=== PATIENT | female | born 1955 | race Caucasian/White ===

== ENCOUNTER 2016-11-14 19:47 | Emergency (ER) | payer BC ==
[2016-11-14] MEDS ORDERED: CORTEF20 MG PO (19:54)
[2016-11-14] MEDS ORDERED: CORTEF 20MG TAB20 MG PO (19:55)
[2016-11-14] MEDS ORDERED: AMBIEN12.5 MG PO (19:55)
[2016-11-14] MEDS ORDERED: PEPCID40 M1 PO (19:56)
[2016-11-14] MEDS ORDERED: ONE DAILY WOME1 EACH PO (19:56)
[2016-11-14] MEDS ORDERED: DURAGESIC1 EAC2 TD (19:56)
[2016-11-14] MEDS ORDERED: MYRBETRIQ50 MG PO (19:58)
[2016-11-14] MEDS ORDERED: LEXAPRO 10MG10 MG PO (19:58)
[2016-11-14] MEDS ORDERED: HYDROCORTISONE5 M2 PO (20:00)
[2016-11-14] MEDS ORDERED: HYDROCORTISONE5 MG PO (20:00)
[2016-11-14] MEDS ORDERED: ONDANSETRON HYDR4 M1 PO (23:53)
[2016-11-15 00:22] VITALS: BP 96/45
== END 2016-11-15 00:22 | disposition home or self-care (01) ==
LOC: ED 19:47
DX: R11.2 Nausea with vomiting, unspecified (principal); E27.40 Unspecified adrenocortical insufficiency
CPT/HCPCS: J1720; J2405; J7030

== ENCOUNTER → 2017-03-05 | Outpatient (REF) ==
[~2017-03-05] MED LIST: AMBIEN12.5 MG PO; CORTEF 20MG TAB20 MG PO; CORTEF20 MG PO; DURAGESIC1 EAC2 TD; HYDROCORTISONE5 M2 PO; HYDROCORTISONE5 MG PO; LEXAPRO 10MG10 MG PO; MYRBETRIQ50 MG PO; ONDANSETRON HYDR4 M1 PO; ONE DAILY WOME1 EACH PO; PEPCID40 M1 PO
== END ==
LOC: LAB 09:46
DX: Z01.818 Encounter for other preprocedural examination (principal); M48.06 Spinal stenosis, lumbar region; M54.16 Radiculopathy, lumbar region

== ENCOUNTER → 2017-03-05 | Outpatient (CLI) | payer BC ==
[~2017-03-05] VITALS: Ht 154.9 cm; Wt 57.7 kg
[2017-03-05 10:08] VITALS: BP 132/66
== END ==
LOC: AMSURD 09:45
DX: Z01.810 Encounter for preprocedural cardiovascular examination (principal); Z01.811 Encounter for preprocedural respiratory examination

== ENCOUNTER 2018-04-15 18:29 | Emergency (ER) | payer BC ==
[~2018-04-15] VITALS: Ht 154.9 cm; Wt 57.7 kg
[2018-04-15] MEDS ORDERED: FLAGYL500 M1 PO (18:49)
[2018-04-15] MEDS ORDERED: CIPRO500 M1 PO (18:49)
[2018-04-15] MEDS ORDERED: CORTEF5 M1 PO (18:50)
[2018-04-15 19:36] LABS: MEAN CELL VOLUME 95 fl (78-100); MEAN CORPUSCULAR HEMOGLOBIN 31 pg (27-31); MEAN CORPUSCULAR HGB CONC 32 g/dL (33-37); MEAN PLATELET VOLUME 9.3 fl (7.4-10.4); PLATELET COUNT 317 K/mm3 (130-400); RED BLOOD COUNT 3.88 M/mm3 (4.10-5.30); RED CELL DISTRIBUTION WIDTH 13.3 % (11.5-14.5); WHITE BLOOD COUNT 4.3 K/mm3 (4.8-10.8)
[2018-04-15 20:09] LABS: LYMPHOCYTE 27 % (20-51); MONOCYTE 12 % (3-10); NEUTROPHILS 59 % (42-75)
[2018-04-15 20:26] LABS: ALBUMIN 3.8 g/dL (3.5-5.0); CALCIUM 9.2 mg/dL (8.4-10.2); TOTAL BILIRUBIN 0.4 mg/dL (0.2-1.3); TOTAL PROTEIN 6.6 g/dL (6.3-8.2)
[2018-04-15 20:31] LABS: URINE APPEARANCE HAZY; URINE COLOR DARK YELLOW; URINE PROTEIN(semi-quant) TRACE mg/dL (NEGATIVE)
[2018-04-15 20:32] LABS: URINE BLOOD TRACE (NEGATIVE); URINE MUCUS PRESENT (NOT PRESENT)
[2018-04-15] MEDS ORDERED: ZOFRAN4 M2 PO (23:02)
[2018-04-15 23:15] VITALS: BP 142/82
== END 2018-04-15 23:15 | disposition home or self-care (01) ==
LOC: ED 18:29
PROVIDERS: Family Medicine
DX: K52.9 Noninfective gastroenteritis and colitis, unspecified (principal); Z79.899 Other long term (current) drug therapy
CPT/HCPCS: J1720; J7030

== ENCOUNTER → 2018-10-10 | Outpatient (CLI) | payer BC ==
[~2018-10-10] VITALS: Ht 154.9 cm; Wt 57.7 kg
[~2018-10-10] MED LIST changes: +AMBIEN CR12.5 MG PO; +CIPRO500 M1 PO; +CORTEF5 M1 PO; +CYANOCOBAL1000 MCG/1 IM; +FLAGYL500 M1 PO; +TYLENOL 8 HOUR650 M1 PO; +VITAMIN C500 M7 PO; +VITAMIN D32000 UNI1 PO; +ZOFRAN4 M2 PO; +ZOFRAN8 MG PO
[2018-10-10 15:30] VITALS: BP 153/81
== END ==
LOC: AMSURD 14:11
DX: Z01.818 Encounter for other preprocedural examination (principal); M48.061 Spinal stenosis, lumbar region without neurogenic claudication; Z87.81 Personal history of (healed) traumatic fracture

== ENCOUNTER → 2020-09-05 | Outpatient (CLI) | payer BC ==
[2018-10-10 15:30] VITALS: BP 153/81
== END ==
LOC: MAMMO 08:04 → EDSTATUS 08:30
DX: Z12.31 Encounter for screening mammogram for malignant neoplasm of breast (principal); M81.0 Age-related osteoporosis without current pathological fracture; M85.80 Other specified disorders of bone density and structure, unspecified site

== ENCOUNTER → 2020-12-19 | Outpatient (CLI) | payer BC ==
[2018-10-10 15:30] VITALS: BP 153/81
== END ==
LOC: RAD 14:58
DX: M47.816 Spondylosis without myelopathy or radiculopathy, lumbar region (principal); M47.817 Spondylosis without myelopathy or radiculopathy, lumbosacral region; Z98.1 Arthrodesis status; Z98.890 Other specified postprocedural states
CPT/HCPCS: A9585

== ENCOUNTER → 2021-07-15 | Outpatient (REF) | payer BC | LOC: LAB 17:41 → EDSTATUS 17:45 | DX: R25.2 Cramp and spasm (principal) ==

== ENCOUNTER → 2021-09-11 | Outpatient (CLI) | payer BC | LOC: RAD 16:53 | DX: M48.061 Spinal stenosis, lumbar region without neurogenic claudication (principal); Z98.1 Arthrodesis status | CPT/HCPCS: A9585 ==

== ENCOUNTER 2022-01-27 18:15 | Emergency (ER) | payer BC ==
[~2022-01-27] VITALS: Ht 152.4 cm; Wt 58.2 kg
[~2022-01-27 18:15] MED LIST changes: -VITAMIN D32000 UNI1 PO; +VITAMIN D350 MC1 PO
[2022-01-27] MEDS ORDERED: FAMOTIDINE40 M1 PO (18:36)
[2022-01-27] MEDS ORDERED: ZOLPIDEM TART12.5 MG PO (18:36)
[2022-01-27] MEDS ORDERED: PREGABALIN75 MG PO (18:36)
[2022-01-27] MEDS ORDERED: HYDROCORTISONE5 M2 PO (18:36)
[2022-01-27] MEDS ORDERED: ONDANSETRON HYDR8 MG PO (18:37)
[2022-01-27 19:02] LABS: HEMATOCRIT 37.3 % (37.0-47.0); HEMOGLOBIN 11.9 g/dL (12.5-16.0); MEAN CELL VOLUME 103 fl (78-100); MEAN CORPUSCULAR HEMOGLOBIN 33 pg (27-31); MEAN CORPUSCULAR HGB CONC 32 g/dL (33-37); PLATELET COUNT 317 K/mm3 (130-400); RED BLOOD COUNT 3.63 M/mm3 (4.10-5.30); RED CELL DISTRIBUTION WIDTH 12.9 % (11.5-14.5); WHITE BLOOD COUNT 4.5 K/mm3 (4.8-10.8)
[2022-01-27 19:13] LABS: ALBUMIN 3.9 g/dL (3.4-4.8)
[2022-01-27 19:14] LABS: POTASSIUM 3.8 mmol/L (3.5-5.1); SODIUM 142 mmol/L (136-145)
[2022-01-27 19:15] LABS: CALCIUM 9.4 mg/dL (8.3-10.5)
[2022-01-27 19:16] LABS: GLUCOSE 119 mg/dL (65-105); TOTAL PROTEIN 6.3 g/dL (6.2-8.1)
[2022-01-27 19:17] LABS: CARBON DIOXIDE 24 mmol/L (23-31)
[2022-01-27 19:18] LABS: TOTAL BILIRUBIN 0.2 mg/dL (0.2-1.2)
[2022-01-27 19:21] LABS: AST-SGOT 19 U/L (5-34)
[2022-01-27 19:22] LABS: ALT/SGPT 13 U/L (0-55); MAGNESIUM 1.92 mg/dL (1.60-2.60)
[2022-01-27 19:23] LABS: URINE APPEARANCE CLEAR; URINE COLOR YELLOW
[2022-01-27 19:23] LABS: LYMPHOCYTE 10 % (20-51); MONOCYTE 4 % (3-10); NEUTROPHILS 86 % (42-75)
[2022-01-27 19:24] LABS: URINE BILIRUBIN NEGATIVE (NEGATIVE); URINE BLOOD NEGATIVE (NEGATIVE); URINE GLUCOSE NEGATIVE (NEGATIVE); URINE KETONE NEGATIVE (NEGATIVE); URINE LEUKOCYTE ESTERASE NEGATIVE (NEGATIVE); URINE MUCUS PRESENT (NOT PRESENT); URINE NITRATE NEGATIVE (NEGATIVE); URINE PROTEIN(semi-quant) TRACE (NEGATIVE); URINE UROBILINOGEN NORMAL (NORMAL); URINE WBC 0-1 /hpf (0-3)
[2022-01-27 19:30] LABS: TROPONIN-I < 0.030 ng/mL (<0.030)
[2022-01-27 20:56] VITALS: BP 138/80
== END 2022-01-27 21:04 | disposition home or self-care (01) ==
LOC: ED 18:15
PROVIDERS: Physician Assistant
DX: R53.1 Weakness (principal); R53.83 Other fatigue; R94.6 Abnormal results of thyroid function studies; E27.40 Unspecified adrenocortical insufficiency; Z79.52 Long term (current) use of systemic steroids; Z20.822 Contact with and (suspected) exposure to COVID-19

== ENCOUNTER → 2022-02-02 | Outpatient (CLI) | payer BC ==
[~2022-02-02] MED LIST changes: +FAMOTIDINE40 M1 PO; +ONDANSETRON HYDR8 MG PO; +PREGABALIN75 MG PO; +ZOLPIDEM TART12.5 MG PO
== END ==
LOC: RAD 11:00 → LAB 11:07
DX: R26.0 Ataxic gait (principal)
CPT/HCPCS: A9575

== ENCOUNTER → 2023-07-20 | Outpatient (CLI) | payer BC, MEDICARE ==
[~2023-07-20] VITALS: Ht 152.4 cm; Wt 54.5 kg
[~2023-07-20] MED LIST changes: +DURAGESIC50 MCG/PAT TD; +ZOFRAN ODT4 MG PO
[2023-07-20 09:30] VITALS: BP 137/73
[2023-07-20 18:55] VITALS: BP 108/68
== END ==
LOC: AMSURD 08:45
DX: R11.0 Nausea (principal)
CPT/HCPCS: J2405; J7030

== ENCOUNTER → 2023-07-20 | Outpatient (REF) | payer BC, MEDICARE | LOC: LAB 08:52 | DX: R11.2 Nausea with vomiting, unspecified (principal) ==

== ENCOUNTER → 2024-02-22 | Outpatient (CLI) | payer BC, MEDICARE ==
[~2024-02-22] MED LIST changes: +Iohexol 300 - 100 ML VIAL IV ONE
== END ==
LOC: RAD 07:44
DX: K82.8 Other specified diseases of gallbladder (principal); K83.8 Other specified diseases of biliary tract
CPT/HCPCS: Q9967

== ENCOUNTER → 2024-02-29 | Outpatient (CLI) | payer BC ==
[~2024-02-29] MED LIST changes: -Iohexol 300 - 100 ML VIAL IV ONE
== END ==
LOC: RAD 09:31
DX: K83.01 Primary sclerosing cholangitis (principal)

== ENCOUNTER → 2024-10-19 | Outpatient (CLI) | payer BC | LOC: MAMMO 08:30 | DX: Z12.31 Encounter for screening mammogram for malignant neoplasm of breast (principal) ==